=== PATIENT | male | born 1975 | race Caucasian/White ===

== ENCOUNTER 2017-05-11 06:11 | Emergency (ER) | payer MEDICAID ==
[~2017-05-11] VITALS: Ht 165.1 cm; Wt 76.4 kg
[2017-05-11 07:09] LABS: RAPID INFLUENZA A Negative (Negative); RAPID INFLUENZA B Negative (Negative)
[2017-05-11 07:40] VITALS: BP 138/95
== END 2017-05-11 07:43 | disposition home or self-care (01) ==
LOC: ED 07:21
DX: J20.9 Acute bronchitis, unspecified (principal); B96.89 Other specified bacterial agents as the cause of diseases classified elsewhere
CPT/HCPCS: 71010; 87400; 99285

== ENCOUNTER 2017-06-30 22:15 | Emergency (ER) | payer MEDICAID ==
[~2017-06-30] VITALS: Ht 165.1 cm; Wt 77.6 kg
[2017-06-30 22:18] VITALS: BP 154/86
== END 2017-06-30 23:48 | disposition home or self-care (01) ==
LOC: ED 23:23
DX: J20.8 Acute bronchitis due to other specified organisms (principal)
CPT/HCPCS: 71020; 99284

== ENCOUNTER 2017-08-01 21:40 | Emergency (ER) | payer MEDICAID ==
[~2017-08-01] VITALS: Ht 165.1 cm; Wt 75.0 kg
[2017-08-01 21:41] VITALS: BP 127/82
[2017-08-01] MEDS ORDERED: ACETAMINOPHEN 500 MG TABLET ONE (22:27)
[2017-08-01] MEDS ORDERED: ACETAMINOPHEN 325 MG TABLET PO ONE (22:30)
[2017-08-01 23:00] LABS: RAPID INFLUENZA A Negative (Negative); RAPID INFLUENZA B POSITIVE (Negative)
== END 2017-08-02 | disposition home or self-care (01) ==
LOC: ED 22:05
DX: J11.1 Influenza due to unidentified influenza virus with other respiratory manifestations (principal); J06.9 Acute upper respiratory infection, unspecified; Z59.0 Homelessness
CPT/HCPCS: 71046; 87400; 93005; 99285

== ENCOUNTER 2017-12-02 03:10 | Emergency (ER) | payer MEDICAID ==
[~2017-12-02] VITALS: Ht 165.1 cm; Wt 78.9 kg
[2017-12-02 03:11] VITALS: BP 130/89
[2017-12-02] MEDS ORDERED: DEXAMETHASONE 4 MG TABLET ONE (03:38)
[2017-12-02] MEDS ORDERED: DEXAMETHASONE 4 MG TABLET PO ONE (04:00)
== END 2017-12-02 04:39 | disposition home or self-care (01) ==
LOC: ED 04:03
DX: J02.9 Acute pharyngitis, unspecified (principal); J06.9 Acute upper respiratory infection, unspecified; B34.9 Viral infection, unspecified
CPT/HCPCS: 87081; 87147; 87880; 99284